=== PATIENT | male | born 1990 | race Caucasian/White ===

== ENCOUNTER 2021-04-28 15:39 | Outpatient (CLI) | payer MEDICAID, SELFPAY ==
--- NOTE | 2021-04-28 | DI.CT_ITS ---
Exam(s) CT ABDOMEN PELVIS WO EXAM: CT ABDOMEN PELVIS WO CLINICAL HISTORY: LLQ ABD PAIN R10.32 RUQ PAIN R10.11 DIARRHEA R19.7. TECHNIQUE: Imaging Protocol: Axial computed tomography images with coronal and sagittal reformatted images were created and reviewed. Oral contrast was administered. COMPARISON: No exams were available for comparison FINDINGS: ABDOMEN: Lung Bases: Normal where visualized. Liver: Normal density. No measurable mass. Gallbladder and biliary tract: No radiodense calculus or biliary ductal dilation. Pancreas: Normal density, no abnormal calcifications or inflammatory process. Spleen: Normal. Splenic calcification which may be due to prior granulomatous disease. Kidneys: Normal size, contour and axis.No radiodense stones or obstructive uropathy. No masses seen. Adrenal glands: No mass is seen. Lymph nodes: Within normal limits. Abdominal Aorta: Abdominal portion non-dilated. PELVIS: Bladder:Incomplete distension. No gross abnormality. Bowel: No bowel obstruction. There is mild diffuse thickening of the wall of the colon. This may be due to underdistention, however an inflammatory/infectious colitis cannot be excluded. Appendix is unremarkable. Peritoneal cavity: No ascites, collection or mesenteric inflammatory response. No free air. Reproductive organs: Within normal limits. Bones: Within normal limits. Soft Tissues: Within normal limits. IMPRESSION: Question of mild thickening of the wall of the colon. While this may be due to underdistention, an i nflammatory/infectious colitis cannot be excluded. Please correlate clinically. RADIATION DOSE DELIVERED: 656.38mGy.cm Total DLP DATA REPOSITORY: All CT scans at this facility are submitted to the National Radiology Data Registry (NRDR) Dose Index Registry (DIR) with the [employer] (ACR). RADIATION OPTIMIZATION: All CT scans at this facility use at least one of these dose optimization te chniques: automated exposure control; mA and/or kV adjustment per patient size (includes targeted exa ms where dose is matched to clinical indication); or iterative reconstruction.
--- NOTE | 2021-04-28 17:48 | DI.VRAD_ITS ---
PROCEDURE INFORMATION: Exam: CT Abdomen And Pelvis Without Contrast Exam date and time: 04/28/2021 3:39 PM Age: 31 years old Clinical indication: Other: Llq abd pain ruq pain diarrhea TECHNIQUE: Imaging protocol: Computed tomography of the abdomen and pelvis without contrast. Other technique: GI contrast given. COMPARISON: No relevant prior studies available. FINDINGS: Liver: Normal. No mass. Gallbladder and bile ducts: Gallstones. Pancreas: Normal. No ductal dilation. Spleen: Splenic calcification, possible old granulomatous change. Adrenal glands: Normal. No mass. Kidneys and ureters: Normal. No hydronephrosis. Stomach and bowel: Allowing for incomplete colonic distension there appears to be mild, patchy somewhat diffuse wall edema Appendix: No evidence of appendicitis. Intraperitoneal space: Unremarkable. No free air. No significant fluid collection. Vasculature: Unremarkable. No abdominal aortic aneurysm. Lymph nodes: Unremarkable. No enlarged lymph nodes. Urinary bladder: The bladder is not well distended. Reproductive: Unremarkable as visualized. Bones/joints: Unremarkable. No acute fracture. Soft tissues: Unremarkable. IMPRESSION: Mild, patchy, diffuse colitis. Dictated and Authenticated by: Rachel Mendoza MD. Ordering:MENG Lee MD
== END 2021-04-28 15:59 ==
PROVIDERS: Visit Provider Physician Assistant Medical
DX: R10.32 Left lower quadrant pain (principal); R10.11 Right upper quadrant pain; R19.7 Diarrhea, unspecified; K52.89 Other specified noninfective gastroenteritis and colitis; K63.89 Other specified diseases of intestine
CPT/HCPCS: 80053; 83690; 74176; 85025

== ENCOUNTER 2021-04-29 07:39 | Outpatient (REF) | payer MEDICAID, SELFPAY ==
[2021-04-28 21:02] LABS: Abs Immature Grans 0.02 10^3/uL (0.0-0.06); Absolute Basophil Count 0.06 10^3/uL (0.0-0.2); Absolute Eosinophil Count 0.11 10^3/uL (0.0-0.7); Absolute Lymphocyte Count 1.26 10^3/uL (1.2-3.4); Absolute Monocyte Count 0.74 10^3/uL (0.1-0.8); Basophils % 0.7; Eosinophils % 1.2; HCT 42.1 % (40.0-50.0); HGB 12.6 g/dL (13.5-17.5); Immature Grans % 0.2; Lymphocytes % 13.9; MCH 21.9 pg (27.0-33.0); MCHC 29.9 % (32.0-36.0); MCV 73.2 fL (80-95); Monocytes % 8.1; Neutrophils % 75.9; Nucleated RBC 0 %; RBC 5.75 10^6/uL (4.36-5.78); RDW 20.7 % (11.8-14.1); RDW-SD 52.5 fL; WBC 9.09 10^3/uL (4.4-10.8)
[2021-04-28 21:19] LABS: ALT 18 U/L (16-63); AST 17 U/L (15-37); Albumin 4.4 g/dL (3.4-5.0); Alkaline Phosphatase 96 U/L (46-116); Anion Gap 7.7 mmol/L (3-11); BUN 11 mg/dL (7-18); Bilirubin, Total 0.3 mg/dL (0.2-1.0); CO2 30.3 mmol/L (21.0-32.0); CREATININE 0.9 mg/dL (0.70-1.30); Calcium 9.8 mg/dL (8.5-10.1); Chloride 101 mmol/L (98-107); Glucose 92 mg/dL (74-106); Lipase 96 U/L (73-393); Potassium 3.9 mmol/L (3.5-5.1); Sodium 139 mmol/L (136-145); Total Protein 8.4 g/dL (6.4-8.2)
[2021-04-28 22:21] LABS: Anisocytosis 3+; Diff Comment RBC Morph Reviewed; Microcytosis 3+; Platelet Count 313 10^3/uL (130-400)
[2021-04-30 10:51] LABS: COVID-19 RT-PCR UVMMC Result Negative (Negative)
== END 2021-04-29 07:40 | disposition home or self-care (01) ==
LOC: LBN 07:39
PROVIDERS: Visit Provider Physician Assistant Medical
DX: R19.7 Diarrhea, unspecified (principal); Z20.822 Contact with and (suspected) exposure to COVID-19
CPT/HCPCS: 80053; 83690; 87329; 87493; 87505; U0003; 85025; 87177

== ENCOUNTER → 2023-06-28 00:41 | Outpatient (CLI) | payer MEDICAID, SELFPAY ==
--- NOTE | 2023-06-28 | DI.RAD_ITS ---
Exam(s) XR LUMBAR SPINE COMPLETE EXAM: XR LUMBAR SPINE COMPLETE CLINICAL HISTORY: M54.9 back pain. TECHNIQUE: 2D digital imaging was performed. COMPARISON: No exams were available for comparison FINDINGS: Five views. There are 5 vertebrae of lumbar configuration. There is no scoliosis in the lumbosacral spinal colum n. There is no evidence of fracture or listhesis nor pars defects. All of the disc spaces exhibit n ormal height. Facet joints appear unremarkable. SI joints unremarkable. Bone density normal. No o sseous lesions. IMPRESSION: No significant radiographic findings on these five views of the lumbosacral spinal column. DATA REPOSITORY: RADIATION DOSE DELIVERED:
--- NOTE | 2023-06-28 | DI.RAD_ITS ---
Exam(s) XR SCOLIOSIS T-L SPINE EXAM: XR SCOLIOSIS T-L SPINE CLINICAL HISTORY: M54.9 back pain. TECHNIQUE: 2D digital imaging was performed. COMPARISON: No exams were available for comparison FINDINGS: Scoliosis series reveals 12 thoracic vertebrae and 5 lumbar vertebrae. No evidence of transitional a natomy nor other developmental abnormalities. All of the disc spaces exhibit normal height including the cervical spine. The cervical, thoracic, and lumbar curvatures are normal. There is no disc space narrowing at any le robel. Sacroiliac joints appear unremarkable. Hip joints appear unremarkable. Bone density normal. No osseous lesions. Ribs appear unremarkable. Clavicle is unremarkable. Visualized AC joints and g lenohumeral joints unremarkable. There is no evidence of significant scoliosis the thoracic and lumbar spines. IMPRESSION: 1. No significant scoliosis. 2. No significant radiographic findings in the thoracolumbar spinal column nor in the visualized cerv ical spinal column. DATA REPOSITORY: RADIATION DOSE DELIVERED:
== END ==
PROVIDERS: Visit Provider Family Medicine
DX: M54.9 Dorsalgia, unspecified (principal)
CPT/HCPCS: 72081; 72110

== ENCOUNTER 2023-12-13 21:05 | Outpatient (REF) | payer MEDICAID, SELFPAY ==
[2023-12-13 21:30] LABS: Abs Immature Grans 0.04 10^3/uL (0.0-0.06); Absolute Basophil Count 0.07 10^3/uL (0.0-0.2); Absolute Eosinophil Count 0.11 10^3/uL (0.0-0.7); Absolute Monocyte Count 0.51 10^3/uL (0.1-0.8); Absolute Neutrophil Count 5.43 10^3/uL (1.2-6.7); Basophils % 0.9 %; Eosinophils % 1.3 %; HCT 32.1 % (40.0-50.0); HGB 9.2 g/dL (13.5-17.5); Immature Grans % 0.5 %; Lymphocytes % 24.5 %; MCH 18.8 pg (27.0-33.0); MCHC 28.7 % (32.0-36.0); MCV 66 fL (80-95); Monocytes % 6.3 %; Neutrophils % 66.5 %; Platelet Count 272 10^3/uL (130-400); RDW 20.5 % (11.8-14.1); RDW-SD 45.4 fL; WBC 8.16 10^3/uL (4.4-10.8)
[2023-12-13 21:49] LABS: Iron 15 ug/dL (65-175); Transferrin Sat 3 % (20-55)
[2023-12-13 21:50] LABS: Total Iron Binding Capacity 435 ug/dL (250-450)
[2023-12-13 21:54] LABS: Anisocytosis 3+; Microcytosis 3+
[2023-12-13 21:56] LABS: Hypochromasia 2+
[2023-12-13 22:06] LABS: Ferritin 3 ng/mL (26-388)
== END 2023-12-13 21:06 | disposition home or self-care (01) ==
LOC: NCHCN 21:05
PROVIDERS: Visit Provider Family Medicine
DX: D64.9 Anemia, unspecified (principal)
CPT/HCPCS: 82728; 83540; 83550; 85025

== ENCOUNTER 2024-03-27 17:17 | Emergency (ER) | payer MEDICAID, SELFPAY ==
[2024-03-27] VITALS (14 sets, daily range): BP systolic 92–161; BP diastolic 38–78; PULSE 62–77; RESP 11–24; TEMP 36.4–36.6; O2SAT 96–97
--- NOTE | 2024-03-27 17:15 | RT.EKG_ITS ---
APPROVED REPORT Exam: Resting ECG Reason for Exam: Chest pain Patient Location: E HR:70 bpm ECG Measurements Heart Rate 70 AXIS OR 138 P 62 QRSd 69 QRS 74 QT 374 T 61 QTc 405 Conclusion Sinus rhythm. 70 normal axis no stemi
--- NOTE | 2024-03-27 18:20 | DI.RAD_ITS ---
Exam(s) XR PORTABLE CHEST AP EXAM: XR PORTABLE CHEST AP CLINICAL HISTORY: CHEST PAIN. TECHNIQUE: 2D digital imaging was performed. COMPARISON: No exams were available for comparison FINDINGS: Single AP portable view. Heart size is upper normal. The mediastinum is not widened. Lungs are clear. No infiltrates nor obvious pleural effusions. IMPRESSION: No acute pulmonary findings on this single AP portable view of the chest. DATA REPOSITORY: RADIATION DOSE DELIVERED:
[2024-03-27 18:25] LABS: Abs Immature Grans 0.02 10^3/uL (0.0-0.06); Absolute Basophil Count 0.06 10^3/uL (0.0-0.2); Absolute Lymphocyte Count 1.64 10^3/uL (1.2-3.4); Absolute Neutrophil Count 3.79 10^3/uL (1.2-6.7); Eosinophils % 1.7 %; HCT 29.7 % (40.0-50.0); HGB 8.5 g/dL (13.5-17.5); Immature Grans % 0.3 %; Lymphocytes % 27.3 %; MCH 18.7 pg (27.0-33.0); MCHC 28.6 % (32.0-36.0); MCV 65 fL (80-95); Monocytes % 6.7 %; Platelet Count 270 10^3/uL (130-400); RBC 4.54 10^6/uL (4.36-5.78); RDW 20.2 % (11.8-14.1); RDW-SD 46.5 fL; WBC 6.01 10^3/uL (4.4-10.8)
[2024-03-27 18:37] LABS: Anisocytosis 3+; Microcytosis 3+
[2024-03-27 18:38] LABS: Poikilocytes 1+
[2024-03-27 18:40] LABS: Albumin 3.5 g/dL (3.4-5.0); Alkaline Phosphatase 74 U/L (46-116); Anion Gap 8.4 mmol/L (3-11); BUN 10 mg/dL (7-18); CO2 26.6 mmol/L (21.0-32.0); CREATININE 0.8 mg/dL (0.70-1.30); Calcium 8.9 mg/dL (8.5-10.1); Chloride 103 mmol/L (98-107); Estimated GFR 118.36 (mL/min/1.73m2); Glucose 124 mg/dL (74-106); Potassium 3.6 mmol/L (3.5-5.1); Sodium 138 mmol/L (136-145); Total Protein 7.2 g/dL (6.4-8.2)
--- NOTE | 2024-03-27 18:47 | DI.VRAD_ITS ---
PROCEDURE INFORMATION: Exam: XR Chest Exam date and time: 03/27/2024 6:15 PM Age: 34 years old Clinical indication: Chest pressure; Patient HX: Chest pain TECHNIQUE: Imaging protocol: Radiologic exam of the chest. Views: 1 view. Other technique: Portable exam. COMPARISON: CR XR SCOLIOSIS T-L SPINE 06/28/2023 3:23 PM FINDINGS: Lungs: Unremarkable. No consolidation. Pleural spaces: Unremarkable. No pleural effusion. No pneumothorax. Heart/Mediastinum: Unremarkable. No cardiomegaly. Bones/joints: Unremarkable. IMPRESSION: No evidence for acute abnormality in the chest. Dictated and Authenticated by: Rachel Mendoza MD. Ordering:[facility] Sindi Carcamo MD
--- NOTE | 2024-03-27 18:53 | NUR.NOTE ---
Nursing Note: Assumed care of pt. Report from DAVID Jackson
--- NOTE | 2024-03-27 19:24 | W.ED.GENAD ---
Discharge Plan Disposition Patient Disposition: Home Discharge Details Clinical Impression: Infusion reaction Primary Care Provider: Unknown,Unknown ED Provider: Carline Delong Home Meds and New Rx's Prescriptions: No Action testosterone 20.25 mg/1.25 gram (1.62 %) gel in metered-dose pump 1 pump topical DAILY Patient Comments: haven't taken in a few weeks Rx Instructions: apply 1 pump amount over max area of ONE upper arm and shoulder Discharge Instructions Additional Instructions: SYMPTOMS LIKELY FROM FISHB[place] REACTION: a non allergic flushing and myalgias following IV iron infusions ANEMIA PERSISTS, PLEASE FOLLOW UP WITH YOUR PCP FOR FURTHER MANAGEMENT OF THIS HPI General Date/Time Provider Initiated Documentation: 03/27/24 17:23. Limitations to Documentation: no limitations. Information obtained by: patient. HPI Narrative: 34-year-old gentleman presents for evaluation of not feeling well after iron infusion today. Patient has history of ongoing iron deficiency anemia and had first iron infusion today. Reports a general unwell feeling, some bodyaches, some chest discomfort. No nausea or vomiting, no rash. Reports no shortness of breath, but just feeling like maybe he cannot take a full breath. No fever or abdominal pain. Did report the symptoms at the infusion center and was told to return for reevaluation if they persisted. Related Data Home Medications ?Medication ?Instructions ?Recorded ?Confirmed testosterone 1 pump topical DAILY 12/17/23 03/27/24 Allergies Allergy/AdvReac Type Severity Reaction Status Date / Time cefaclor (From [facility]) Allergy Intermediate Hives Verified 03/27/24 17:24 General Stated Complaint: [facility] VALARIE: 2 Exam Narrative Exam Narrative: Review of Systems: All systems reviewed & are unremarkable except as noted in HPI and below Well-developed, no acute distress NCAT Oropharynx clear without edema, no stridor RRR no murmur, no tachycardia Unlabored respiratory effort, clear bilaterally, no wheezing Nondistended abdomen soft nontender No rashes no focal neurologic deficits Course Vital Signs Vital signs: Vital Signs Temperature 36.6 C 03/27/24 17:18 Pulse 74 03/27/24 17:18 Respiratory Rate 16 03/27/24 17:18 Blood Pressure 161/78 H 03/27/24 17:18 Pulse Oximetry 97 03/27/24 17:18 Temperature 36.4 C L 08/29/24 17:59 Temperature Source Temporal Artery Scan 03/27/24 17:59 Pulse 69 03/27/24 19:02 Pulse 71 03/27/24 19:02 Respiratory Rate 20 03/27/24 19:02 Respiratory Effort Normal, Non-Labored 03/27/24 17:59 Respiratory Depth Normal 03/27/24 17:59 Respiratory Pattern Normal 03/27/24 17:59 Blood Pressure 101/58 L 03/27/24 19:02 Blood Pressure Mean 72 03/27/24 19:02 Pulse Oximetry 97 03/27/24 19:02 Oxygen Delivery Method Room Air 03/27/24 17:59 Oxygen Flow Rate 0 03/27/24 17:18 Pain Level 1 03/27/24 19:08 Lab/Test Results Lab/Test Results: Laboratory Tests Range/Units 03/27/24 03/27/24 17:57 18:18 WBC Cancelled 6.01 RBC Cancelled 4.54 Hgb Cancelled 8.5 L Hct Cancelled 29.7 L MCV Cancelled 65 L MCH Cancelled 18.7 L MCHC Cancelled 28.6 L RDW Cancelled 20.2 H Plt Count Cancelled 270 MPV Cancelled Immature Gran % Cancelled 0.3 Neutrophils % Cancelled 63.0 Band Neutrophils % Cancelled Lymphocytes % Cancelled 27.3 Atypical Lymphs % Cancelled Monocytes % Cancelled 6.7 Eosinophils % Cancelled 1.7 Basophils % Cancelled 1.0 Metamyelocytes % Cancelled Myelocytes % Cancelled Promyelocytes % Cancelled Other Cells % Cancelled Nucleated RBC % Cancelled 0.0 Absolute Neutrophils Cancelled 3.79 Absolute Lymphocytes Cancelled 1.64 Absolute Monocytes Cancelled 0.40 Absolute Eosinophils Cancelled 0.10 Absolute Basophils Cancelled 0.06 RBC Morphology Cancelled See Below Polychromasia Cancelled Hypochromasia Cancelled Poikilocytosis Cancelled 1+ Basophilic Stippling Cancelled Anisocytosis Cancelled 3+ Microcytosis Cancelled 3+ Macrocytosis Cancelled Spherocytes Cancelled Tear Drop Cells Cancelled Ovalocytes Cancelled Stomatocytes Cancelled [place] Bodies Cancelled Blossom Cells/Echinocytes Cancelled Acanthocytes (Spur) Cancelled Schistocytes Cancelled Sodium Cancelled 138 Potassium Cancelled 3.6 Chloride Cancelled 103 Carbon Dioxide Cancelled 26.6 Anion Gap Cancelled 8.4 BUN Cancelled 10 Creatinine Cancelled 0.8 Est GFR (CKD-EPI 2020) Cancelled 118.36 Glucose Cancelled 124 H Calcium Cancelled 8.9 Total Bilirubin Cancelled AST Cancelled ALT Cancelled Alkaline Phosphatase Cancelled 74 Total Protein Cancelled 7.2 Albumin Cancelled 3.5 Medical Decision Making Emergent evaluation after iron infusion. Symptoms are not consistent with anaphylaxis or other concerning allergic reaction. Examination at this time is normal. EKG was obtained and independently reviewed and interpreted by me. EKG demonstrates sinus rhythm without dysrhythmias or signs of acute ischemia. The symptoms do seem consistent with likely fishbane reaction. Based on the patient's reported symptoms. Lab work was obtained and reviewed. There is persistent anemia with hemoglobin levels of 8.5 and 29.7. This is not acute, does not require emergent blood transfusion. CMP was reviewed and there are no acute clinically significant abnormalities. Chest x-ray was obtained due to the patient's complaint of feeling short of breath. Chest x-ray was reviewed and independently interpreted by me: no focal consolidation, normal heart size, no pulmonary edema or pleural effusion At this time I feel the patient is stable for discharge, recommend following up with PCP and infusion team but at this time I do not see any reason for him to not get additional transfusions. Quality:SDOH Health Related Social Needs: No Data to Display PFSH All Active Problems Infusion reaction (Acute) Medical History Pain in left wrist Pain in finger of left hand Left lower quadrant pain Right upper quadrant abdominal pain Abdominal pain Diarrhea Pain in thoracic spine Excessive and frequent menstruation Dysmenorrhea Lesion of nasal mucosa PTSD (post-traumatic stress disorder) Anxiety Anemia Surgical History History of mastectomy, total H/O sex reassignment Family History Paternal Grandfather Heart attack Aunt Heart attack x3 Mother Fibromyalgia Aunt Breast cancer Social History Smoking/Tobacco Use Status: Never Smoking risk assessment performed?: Yes Alcohol Intake: never Housing: house Do you feel safe at home: Yes Do you feel safe in your relationship?: Yes Additional Social history: family at side, very supportive
[2024-03-27 19:49] LABS: Bilirubin, Total < 0.10 mg/dL (0.2-1.0)
== END 2024-03-27 19:09 | disposition home or self-care (01) ==
LOC: ER 20:01
PROVIDERS: Emergency Provider Emergency Medicine
DX: T80.90XA Unspecified complication following infusion and therapeutic injection, initial encounter (principal); R07.9 Chest pain, unspecified
CPT/HCPCS: 36415; 80053; 93005; 99283; 71045; 85025; 93010

== ENCOUNTER 2024-06-05 18:00 | Outpatient (REF) | payer MEDICAID, SELFPAY ==
[2024-06-05 21:32] LABS: Abs Immature Grans 0.02 10^3/uL (0.0-0.06); Absolute Basophil Count 0.05 10^3/uL (0.0-0.2); Absolute Eosinophil Count 0.12 10^3/uL (0.0-0.7); Absolute Lymphocyte Count 1.74 10^3/uL (1.2-3.4); Absolute Monocyte Count 0.34 10^3/uL (0.1-0.8); Absolute Neutrophil Count 5.16 10^3/uL (1.2-6.7); Basophils % 0.7 %; Eosinophils % 1.6 %; HCT 42.5 % (40.0-50.0); Immature Grans % 0.3 %; Lymphocytes % 23.4 %; MCH 27.2 pg (27.0-33.0); MCHC 32.9 % (32.0-36.0); MCV 83 fL (80-95); Monocytes % 4.6 %; Neutrophils % 69.4 %; RBC 5.15 10^6/uL (4.36-5.78); WBC 7.43 10^3/uL (4.4-10.8)
[2024-06-05 22:00] LABS: Iron 48 ug/dL (65-175); Total Iron Binding Capacity 272 ug/dL (250-450); Transferrin Sat 18 % (20-55)
[2024-06-05 22:07] LABS: Ferritin 39 ng/mL (26-388)
[2024-06-05 22:57] LABS: Platelet Count 265 10^3/uL (130-400)
[2024-06-05 23:00] LABS: Anisocytosis 3+; Diff Comment RBC Morph Reviewed; Hypochromasia 1+; Microcytosis 1+; Poikilocytes 1+
== END 2024-06-05 18:01 | disposition home or self-care (01) ==
LOC: NCHCN 18:00
PROVIDERS: Visit Provider Family Medicine
DX: N94.6 Dysmenorrhea, unspecified (principal)
CPT/HCPCS: 82728; 83540; 83550; 85025

== ENCOUNTER 2024-06-17 14:31 | Outpatient (CLI) | payer MEDICAID, SELFPAY ==
[2024-06-17 13:14] LABS: Abs Immature Grans 0.03 10^3/uL (0.0-0.06); Absolute Basophil Count 0.06 10^3/uL (0.0-0.2); Absolute Lymphocyte Count 1.86 10^3/uL (1.2-3.4); Absolute Monocyte Count 0.53 10^3/uL (0.1-0.8); Absolute Neutrophil Count 5.59 10^3/uL (1.2-6.7); Basophils % 0.7 %; Eosinophils % 2.4 %; HCT 45.3 % (40.0-50.0); HGB 14.9 g/dL (13.5-17.5); Immature Grans % 0.4 %; Lymphocytes % 22.5 %; MCHC 32.9 % (32.0-36.0); MCV 85 fL (80-95); Monocytes % 6.4 %; Neutrophils % 67.6 %; Platelet Count 258 10^3/uL (130-400); RBC 5.32 10^6/uL (4.36-5.78); RDW-SD 65.8 fL; WBC 8.27 10^3/uL (4.4-10.8)
[2024-06-17 13:49] LABS: Ferritin 20 ng/mL (26-388)
== END 2024-06-17 14:32 | disposition home or self-care (01) ==
LOC: LBO 14:31
PROVIDERS: Visit Provider Internal Medicine Hematology & Oncology
DX: D50.0 Iron deficiency anemia secondary to blood loss (chronic) (principal)
CPT/HCPCS: 36415; 82728; 85025

== ENCOUNTER 2024-07-29 15:17 | Outpatient (REF) | payer MEDICAID, SELFPAY ==
[2024-07-29 16:24] LABS: Ferritin 233 ng/mL (26-388); TSH (W/Ref FT4) 1.85 uIU/mL (0.36-3.74)
[2024-07-29 16:51] LABS: Iron 113 ug/dL (65-175); Total Iron Binding Capacity 289 ug/dL (250-450); Transferrin Sat 39 % (20-55)
== END 2024-07-29 15:18 | disposition home or self-care (01) ==
LOC: NCHCN 15:17
PROVIDERS: Visit Provider Family Medicine
DX: E61.1 Iron deficiency (principal); N92.0 Excessive and frequent menstruation with regular cycle
CPT/HCPCS: 82728; 83540; 83550; 84443; 85025

== ENCOUNTER 2024-08-21 16:59 | Outpatient (REF) | payer MEDICAID, SELFPAY ==
[2024-08-21 20:48] LABS: Abs Immature Grans 0.03 10^3/uL (0.0-0.06); Absolute Basophil Count 0.05 10^3/uL (0.0-0.2); Absolute Eosinophil Count 0.11 10^3/uL (0.0-0.7); Absolute Lymphocyte Count 1.86 10^3/uL (1.2-3.4); Absolute Neutrophil Count 6.92 10^3/uL (1.2-6.7); Basophils % 0.5 %; Eosinophils % 1.2 %; HCT 43.9 % (40.0-50.0); HGB 14.7 g/dL (13.5-17.5); Immature Grans % 0.3 %; Lymphocytes % 19.9 %; MCH 30.1 pg (27.0-33.0); MCHC 33.5 % (32.0-36.0); MCV 90 fL (80-95); MPV 11.2 fL (8.0-11.0); Monocytes % 4.3 %; Neutrophils % 73.8 %; Platelet Count 249 10^3/uL (130-400); RBC 4.88 10^6/uL (4.36-5.78); RDW 13.2 % (11.8-14.1); RDW-SD 43.8 fL; WBC 9.37 10^3/uL (4.4-10.8)
[2024-08-21 21:20] LABS: Ferritin 267 ng/mL (26-388)
== END 2024-08-21 17:00 | disposition home or self-care (01) ==
LOC: NCHCN 16:59
PROVIDERS: Visit Provider Family Medicine
DX: D59.9 Acquired hemolytic anemia, unspecified (principal)
CPT/HCPCS: 82728; 85025

== ENCOUNTER 2025-04-06 16:41 | Outpatient (REF) | payer MEDICAID, SELFPAY ==
[2025-04-06 14:38] LABS: Abs Immature Grans 0.02 10^3/uL (0.0-0.06); HCT 45.3 % (40.0-50.0); HGB 15.0 g/dL (13.5-17.5); Immature Grans % 0.3 %; MCH 28.7 pg (27.0-33.0); MCHC 33.1 % (32.0-36.0); MCV 87 fL (80-95); MPV 11.4 fL (8.0-11.0); Platelet Count 252 10^3/uL (130-400); RBC 5.23 10^6/uL (4.36-5.78); RDW 13.0 % (11.8-14.1); RDW-SD 40.8 fL; WBC 7.15 10^3/uL (4.4-10.8)
[2025-04-06 15:11] LABS: ALT 21 U/L (16-63); AST 15 U/L (15-37); Albumin 4.2 g/dL (3.4-5.0); Alkaline Phosphatase 85 U/L (46-116); Anion Gap 12.1 mmol/L (3-11); BUN 12 mg/dL (7-18); Bilirubin, Total 0.4 mg/dL (0.2-1.0); CO2 25.9 mmol/L (21.0-32.0); Calcium 9.2 mg/dL (8.5-10.1); Chloride 102 mmol/L (98-107); Estimated GFR 122.47 (mL/min/1.73m2); Ferritin 132 ng/mL (26-388); Glucose 117 mg/dL (74-106); Potassium 3.7 mmol/L (3.5-5.1); Sodium 140 mmol/L (136-145); Total Protein 7.8 g/dL (6.4-8.2)
[2025-04-06 15:38] LABS: Iron 77 ug/dL (65-175); Total Iron Binding Capacity 305 ug/dL (250-450); Transferrin Sat 25 % (20-55)
== END 2025-04-06 16:42 | disposition home or self-care (01) ==
LOC: NCHCN 16:41
PROVIDERS: Visit Provider Nurse Practitioner Family
DX: R53.81 Other malaise (principal); R53.83 Other fatigue
CPT/HCPCS: 80053; 82728; 83540; 83550; 85025